=== PATIENT | female | born 1960 | race Caucasian/White ===

== ENCOUNTER 2021-08-15 18:47 | Emergency (ER) | payer MEDICARE ==
[~2021-08-15] VITALS: Ht 160 cm; Wt 52.0 kg
[2021-08-15] MEDS ORDERED: KETOROLAC 30 MG/ML VIAL. IVP ONE (19:15)
[2021-08-15] MEDS ORDERED: IV NORMAL SALINE 1000ML BAG 1,000 ML IV ONE (19:15)
[2021-08-15] MEDS ORDERED: ONDANSETRON PF 4 MG/2 ML VIAL. IVP ONE ×3 (19:15→22:45)
[2021-08-15 19:26] LABS: BASO % 0 % (0-3); EOS # 0.1 x10^3/uL (0.0-0.7); EOS % 1 % (0-3); HEMATOCRIT 39.6 % (36.0-47.0); HEMOGLOBIN 13.5 g/dL (12.0-15.5); LYMPH # 0.8 x10^3/uL (1.0-4.8); LYMPH % 9 % (24-48); MEAN CORPUSCULAR HEMOGLOBIN 30 pg (25-35); MEAN CORPUSCULAR HGB CONC 34 g/dL (31-37); MEAN CORPUSCULAR VOLUME 87 fL (79-100); MONO # 0.4 x10^3/uL (0.0-1.1); MONO % 4 % (0-9); NEUT # 7.9 x10^3/uL (1.8-7.7); NEUT % 85 % (31-73); PLATELET COUNT 397 x10^3/uL (140-400); RED BLOOD COUNT 4.54 x10^6/uL (3.50-5.40); RED CELL DISTRIBUTION WIDTH 13.1 % (11.5-14.5); WHITE BLOOD COUNT 9.2 x10^3/uL (4.0-11.0)
--- NOTE | 2021-08-15 19:27 | ED.ADGEN ---
Past Medical History Past Surgical History: No Surgical History General Adult EDM: Chief Complaint: ABDOMINAL PAIN HPI: HPI: Patient is a 60 year old female who presents to the Emergency Room complaining of nausea, vomiting, and epigastric burning. Patient states that this morning she started having nausea with vomiting. She has been unable to keep anything down. She states she is now just vomiting yellow bile as there is nothing in her stomach. She states after vomiting for several hours, she develops epigastric burning. Denies any other abdominal pain, fever, chills, sweats, loss of appetitie. Review of Systems: Review of Systems: Complete ROS is negative unless otherwise documented in HPI Current Medications: Current Medications Medications (Trade) Dose Ordered Sig/Ginny Start Time Stop Time Status Last Admin Dose Admin Info (CONTRAST GIVEN -- Rx MONITORING) 1 each PRN DAILY PRN 08/15/21 21:00 08/17/21 20:59 Iohexol (Omnipaque 240 Mg/ml) 50 ml 1X ONCE 08/15/21 20:45 08/15/21 20:51 DC 08/15/21 20:45 50 ML Iohexol (Omnipaque 300 Mg/ml) 75 ml 1X ONCE 08/15/21 20:45 08/15/21 20:51 DC 08/15/21 20:45 75 ML Ketorolac Tromethamine (Toradol 30mg Vial) 30 mg 1X ONCE 08/15/21 19:15 08/15/21 19:16 DC 08/15/21 19:14 30 MG Morphine Sulfate (Morphine Sulfate) 5 mg 1X ONCE 08/15/21 22:45 08/15/21 22:46 DC 08/15/21 23:16 5 MG Ondansetron HCl (Zofran) 4 mg 1X ONCE 08/15/21 22:45 08/15/21 22:46 DC 08/15/21 23:16 4 MG Sodium Chloride 1,000 ml @ 1,000 mls/hr 1X ONCE 08/15/21 19:15 08/15/21 20:14 DC 08/15/21 19:14 1,000 MLS/HR Allergies: Allergies: Allergies Coded Allergies Type Severity Reaction Last Updated Verified No Known Drug Allergies 08/15/21 No Physical Exam: PE: General: Awake, alert, NAD. Well Nourished, well hydrated. Cooperative HEENT: Atraumatic, EOMI, PERRL, airway patent, moist oral mucosa Neck: Supple, trachea midline Respiratory: CTA bilaterally, normal effort, no wheezing/crackles CV: RRR, no murmur, cap refill <2 GI: Soft, nondistended, nontender, no masses MSK: No obvious deformities Skin: Warm, dry, intact Neuro: A&O x3, speech NL, sensory and motor grossly intact, no focal deficits Psych: Normal affect, normal mood, not suicidal or homicidal Current Patient Data: Labs: Laboratory Tests Test 08/15/21 19:00 08/15/21 19:15 Urine Collection Type Unknown Urine Color Yellow Urine Clarity Clear Urine pH 7.0 (<5.0-8.0) Urine Specific Maddock 1.020 (1.000-1.030) Urine Protein 100 mg/dL (NEG-TRACE) Urine Glucose (UA) Negative mg/dL (NEG) Urine Ketones (Stick) 15 mg/dL (NEG) Urine Blood Negative (NEG) Urine Nitrite Negative (NEG) Urine Bilirubin Small (NEG) Urine Urobilinogen Dipstick 1.0 mg/dL (0.2 mg/dL) Urine Leukocyte Esterase Negative (NEG) Urine RBC 0 /HPF (0-2) Urine WBC 1-4 /HPF (0-4) Urine Squamous Epithelial Cells Mod /LPF Urine Bacteria Mod /HPF (0-FEW) Urine Hyaline Casts Moderate /HPF Urine Mucus Marked /LPF White Blood Count 9.2 x10^3/uL (4.0-11.0) Red Blood Count 4.54 x10^6/uL (3.50-5.40) Hemoglobin 13.5 g/dL (12.0-15.5) Hematocrit 39.6 % (36.0-47.0) Mean Corpuscular Volume 87 fL (79-100) Mean Corpuscular Hemoglobin 30 pg (25-35) Mean Corpuscular Hemoglobin Concent 34 g/dL (31-37) Red Cell Distribution Width 13.1 % (11.5-14.5) Platelet Count 397 x10^3/uL (140-400) Neutrophils (%) (Auto) 85 % (31-73) H Lymphocytes (%) (Auto) 9 % (24-48) L Monocytes (%) (Auto) 4 % (0-9) Eosinophils (%) (Auto) 1 % (0-3) Basophils (%) (Auto) 0 % (0-3) Neutrophils # (Auto) 7.9 x10^3/uL (1.8-7.7) H Lymphocytes # (Auto) 0.8 x10^3/uL (1.0-4.8) L Monocytes # (Auto) 0.4 x10^3/uL (0.0-1.1) Eosinophils # (Auto) 0.1 x10^3/uL (0.0-0.7) Basophils # (Auto) 0.0 x10^3/uL (0.0-0.2) Sodium Level 139 mmol/L (136-145) Potassium Level 4.2 mmol/L (3.5-5.1) Chloride Level 105 mmol/L (98-107) Carbon Dioxide Level 25 mmol/L (21-32) Anion Gap 9 (6-14) Blood Urea Nitrogen 13 mg/dL (7-20) Creatinine 0.8 mg/dL (0.6-1.0) Estimated GFR (Cockcroft-Gault) 72.7 BUN/Creatinine Ratio 16 (6-20) Glucose Level 109 mg/dL (70-99) H Calcium Level 9.0 mg/dL (8.5-10.1) Magnesium Level 2.1 mg/dL (1.8-2.4) Total Bilirubin 0.4 mg/dL (0.2-1.0) Aspartate Amino Transferase (AST) 14 U/L (15-37) L Alanine Aminotransferase (ALT) 22 U/L (14-59) Alkaline Phosphatase 108 U/L (46-116) Troponin I High Sensitivity 5 ng/L (4-50) Total Protein 7.0 g/dL (6.4-8.2) Albumin 3.9 g/dL (3.4-5.0) Albumin/Globulin Ratio 1.3 (1.0-1.7) Lipase 534 U/L (73-393) H Laboratory Tests 08/15/21 19:15 Laboratory Tests 08/15/21 19:15 Vital Signs: Vital Signs Date Time Temp Pulse Resp B/P (MAP) Pulse Ox O2 Delivery O2 Flow Rate FiO2 08/15/21 23:16 16 99 Room Air 08/15/21 23:00 80 136/63 (87) 08/15/21 18:52 97.8 97.8 EKG: EKG: [] Heart Score: C/O Chest Pain: N/A Risk Factors: Risk Factors: DM, Current or recent (<one month) smoker, HTN, HLP, family history of CAD, obesity. Risk Scores: Score 0 - 3: 2.5% MACE over next 6 weeks - Discharge Home Score 4 - 6: 20.3% MACE over next 6 weeks - Admit for Clinical Observation Score 7 - 10: 72.7% MACE over next 6 weeks - Early Invasive Strategies Radiology/Procedures: Radiology/Procedures: [] Course & Med Decision Making: Course & Med Decision Making Pertinent Labs and Imaging studies reviewed. (See chart for details) Patient is a 60-year-old female who presents to the emergency room complaining of vomiting and epigastric burning. Patient likely has viral infection that is spreading through the community at this time with the same symptoms. Other differential includes gastritis, pancreatitis, cholecystitis. Patient is afebrile at this time. Abdominal lab work will be done to evaluate for elevated lipase or liver enzymes that would require further evaluation. Patient will be given fluids and Zofran. Lipase came back elevated. Will do a CT abdomen p víctro to evaluate for signs of pancreatitis or cholecystitis. CT is normal. Offered patient admission and she would like to go home. She is feeling better. Discussed starting with [facility] and then progressing diet from there. She will return if symptoms worsen. Patient's test results and vitals while in the ED were fully reviewed and discussed with the patient. Patient is stable and at this time does not need admission to the hospital. We have discussed strict return precautions and the importance of following up with their Primary Care Physician. Patient stated understanding and was given an opportunity to ask any questions. Patient is in agreement with plan. Wanda Disclaimer: Wanda Disclaimer: This electronic medical record was generated, in whole or in part, using a voice recognition dictation system. Departure Departure Impression: Primary Impression: Gastroenteritis Additional Impression: Elevated lipase Disposition: HOME / SELF CARE / HOMELESS Condition: IMPROVED Patient Instructions: Clear Liquid Diet, Mpan-re-Veuj, Viral Gastroenteritis Scripts Hyoscyamine Sulfate (LEVSIN-SL) 0.125 Mg Tab.subl 2-Jun TAB SL PRN Q4HRS PRN for pain for 5 Days, #60 TAB 0 Refills Prov: LIZZ JIMENEZ MD 08/15/21 Ondansetron (ONDANSETRON ODT) 4 Mg Tab.rapdis 1 TAB PO PRN Q6-8HRS PRN for VOMITING, #16 TAB Prov: LIZZ JIMENEZ MD 08/15/21 Problem Qualifiers LIZZ JIMENEZ MD Aug 15, 2021 19:27
[2021-08-15 19:35] LABS: CREATININE 0.8 mg/dL (0.6-1.0); GFR 72.7; POTASSIUM 4.2 mmol/L (3.5-5.1)
[2021-08-15 19:41] LABS: ALBUMIN 3.9 g/dL (3.4-5.0); ALBUMIN/GLOBULIN RATIO 1.3 (1.0-1.7); MAGNESIUM 2.1 mg/dL (1.8-2.4); TOTAL BILIRUBIN 0.4 mg/dL (0.2-1.0)
[2021-08-15 20:34] LABS: BILIRUBIN,URINE SMALL (NEG); CLARITY,URINE CLEAR; COLOR,URINE YELLOW
[2021-08-15 20:35] LABS: HYALINE CASTS, URINE MODERATE /HPF; NITRITE,URINE NEGATIVE (NEG); PROTEIN,URINE 100 mg/dL (NEG-TRACE)
[2021-08-15 20:36] LABS: BACTERIA,URINE MOD /HPF (0-FEW); RBC,URINE 0 /HPF (0-2)
[2021-08-15] MEDS ORDERED: IOHEXOL 300 MG/ML 100ML VIAL. IV ONE (20:45)
[2021-08-15] MEDS ORDERED: IOHEXOL 240 MG/ML 50ML VIAL. PO ONE (20:45)
[2021-08-15] MEDS ORDERED: CONTRAST GIVEN. MC PRN (21:00)
--- NOTE | 2021-08-15 22:19 | RAD ---
Exam: CT of abdomen and pelvis with contrast INDICATION: Abdominal pain TECHNIQUE: Sequential axial images through the abdomen and pelvis obtained following the administrati on of 75 mL of Isovue-370 IV contrast. Sagittal and coronal reformatted images were reconstructed fro m the axial data and reviewed. Exposure: One or more of the following in the visualized dose reduction techniques were utilized for this examination: 1. Automated exposure control 2. Adjustment of the MA and/or KV according to patient size 3. Use of iterative of reconstructive technique Comparisons: None FINDINGS: Heart size is normal. No pericardial effusion. Visualized lung bases are clear. No pleural effusion. Liver, spleen, pancreas, gallbladder and adrenals are unremarkable. No perinephric inflammation or hydronephrosis. No renal or ureteral calculi are identified. Bladder is partially distended and not well evaluated. Uterus is nonenlarged. No abnormal adnexal mas s. Moderate amount of stool noted in the colon. Appendix is normal. No free intra-abdominal air or fluid . No obstruction. Abdominal aorta has normal course caliber. Abdominal vasculature is patent. No enlarged intra-abdominal lymph nodes are identified. No suspicious osseous lesions or acute fractures. IMPRESSION: No acute process identified in the abdomen or pelvis. Electronically signed by: Ponce Medina MD (08/15/2021 10:17 PM) [facility]
[2021-08-15] MEDS ORDERED: MORPHINE SULFATE 10 MG/ML VIAL. IV ONE (22:45)
[2021-08-15] MEDS ORDERED: HYOS0.1265 SL (23:52)
[2021-08-15] MEDS ORDERED: ONDA4TAB12 PO (23:52)
[2021-08-15 23:55] VITALS: BP 133/61
== END 2021-08-16 00:15 | disposition home or self-care (01) ==
LOC: ER 18:47
DX: K52.9 Noninfective gastroenteritis and colitis, unspecified (principal); R74.8 Abnormal levels of other serum enzymes
CPT/HCPCS: 36415; 74177; 80053; 81001; 83690; 83735; 84484; 85025; 96361; 96374; 96375; 96376; 99284; J1885; J2270; J2405; J7030; Q9966; Q9967; 99285-25